=== PATIENT | female | born 1985 | race Caucasian/White ===

== ENCOUNTER 2020-08-17 05:20 | Day surgery (SDC) | payer MEDICAID ==
[2020-08-14 10:37] LABS: BASOPHILS 0.3 % (0-2); EOSINOPHILS 3.5 % (0-7); HEMATOCRIT 41.7 % (36.0-48.0); HEMOGLOBIN 13.6 g/dL (12-16); IMMATURE GRANULOCYTES 0.1 % (0-5); LYMPHOCYTES 27.3 % (15-50); MCH 28.7 pg (26.0-34.0); MCHC 32.6 g/dL (31.0-37.0); MEAN PLATELET VOLUME 10.6 fL (7.4-10.4); MONOCYTES 8.2 % (2-11); NEUTROPHILS 60.6 % (40-80); PLATELET COUNT 266 10x3/uL (130-400); RBC 4.74 10x6/uL (4.00-5.40); RDW 14.4 % (11.5-14.5); WBC 6.9 10x3/uL (4.8-10.8)
[~2020-08-17] VITALS: Ht 170.2 cm; Wt 95.3 kg
--- NOTE | ~2020-08-17 | OP ---
PATIENT NAME: ELADIA PEREA MEDICAL RECORD: [id number] :81 LOCATION:[facility] ADMISSION DATE: SURGEON: AKANKSHA RAIN DO DATE OF OPERATION: 08/17/2020 PREOPERATIVE DIAGNOSES: 1. Desires sterilization. 2. Menorrhagia. POSTOPERATIVE DIAGNOSES: 1. Desires sterilization. 2. Menorrhagia. PRIMARY SURGEON: Akanksha Rain DO ANESTHESIA: General endotracheal tube for intubation. PROCEDURE: Laparoscopic bilateral partial salpingectomy, hysteroscopy, D&C with NovaSure ablation. FINDINGS: Laparoscopy demonstrated uterus adhered to the anterior abdominal wall with dense adhesions, left greater than right. Liver, gallbladder and bilateral ovaries grossly normal. Ureters visualized with good peristalsis bilaterally. Hysteroscopy demonstrated bilateral ostia noted with small polyp fundus, it was resected mucoid discharge and moderate amount of polypoid tissue and D&C. NovaSure parameters were length 6 cm with 4.3 cm and RF time of 57 seconds. SPECIMENS: 1. Portions of right and left fallopian tubes. 2. Endometrial curetting. ESTIMATED BLOOD LOSS: 20 cc. IV FLUIDS: Per anesthesia. URINE OUTPUT: 20 cc red rubber and 100 cc of clear yellow urine at the Jennings at end of case. INFECTION PROPHYLAXIS: Betadine prep. COMPLICATIONS: None. Prior to procedure, the patient was counseled on risks and benefits of salpingectomy. The patient desires permanent sterilization as well as risks and benefits of ablation for menorrhagia. The patient expressed understanding and signed consent before procedure. DESCRIPTION OF PROCEDURE: The patient was then taken to the operating room where general anesthesia was administered. She was placed in the dorsal lithotomy position with Kameron stirrups and prepped and draped in normal usual fashion. A red rubber catheter used to drain urine and then a decision made to perform salpingectomy first. So, Jennings was placed. Attention then turned to the abdomen. Marcaine solution was utilized at the sites of trocar placement. Initially placed at the subumbilical area 5-mm subumbilical incision made OPERATIVE REPORT [id number] ELADIA PEREA through the skin and 5 mm trocar with laparoscope inside placed without difficulty. The peritoneal cavity was then insufflated with CO2 gas to maximum pressure of 20 mmHg. A laparoscope was reintroduced and entry was confirmed and no trauma noted in the cavity. The abdominal cavity was examined. Liver and gallbladder were grossly normal. Uterus noted to be adhered to the anterior abdominal wall with dense adhesions. Following this, 2 other ports were placed, 8-mm port on the right and a 5-mm port on the left side about 2 cm above and medial to the ASIS and respective side and they were placed under direct in full visualization after utilizing Marcaine on the skin. Taking care not to enter any vessels or injure any peritoneal contents. Due to adhesions, a distal part of fallopian tube was free, proximal part next to fundus was adhered to the abdominal wall, so 3-cm portion including fimbriae to adhesion on abdominal wall of fallopian tube was taken off initially starting on the right side, the fimbria grasped and Sorento introduced and staying close to fimbriae, staying close to tube. Coagulation was utilized and then ligation with the Thunderbeak to remove the fimbria and distal portion of the tube with good hemostasis. A portion of tube was then removed from 8 mm site and reexamined and noted to be hemostatic. Attention then turned to the opposite side where same steps were repeated and portion of tube was removed, again on the opposite side slightly smaller due to more dense adhesions on the left side as about 1.5-2 cm portion of tube removed including fimbriae. Prior to removing fimbriae, pelvic sidewalls were examined and ureters noted to have a good peristalsis bilaterally at cuff. Light irrigation used and no active bleeding noted and then after inspection of the abdomen the ports were removed under direct laparoscopic visualization. CO2 gas was then allowed to escape and the subumbilical port was removed with laparoscope in place for any possible bleeders. None were noted. Skin incisions were reapproximated with 3-0 Monocryl in subcuticular manner. Hemostasis was adequate. Attention then turned to the vagina. Bimanual exam revealed anteverted uterus with cervix retroverted due to adhesions I saw on laparoscopy, not very mobile. [place] speculum was placed in the vagina and anterior lip of the cervix was grasped with single-tooth tenaculum and brought forward. The sound was passed inside to measure length of uterus and cervix length was found to be 6 cm. Next, Hegar dilators were inserted to dilate cervical os to 8-mm. SureSound was utilized to measure length of uterus and cervix, and length of endometrial cavity was noted to be 6 cm. The diagnostic hysteroscopy was then introduced to the uterine cavity. Uterus distended with normal saline fluid. Cavity was found to be normal shape. A small polyp noted. Both ostia visualized. Scope was removed. Cervix was further dilated. A curette was introduced into the cavity. Thorough curettage was performed and sample sent to pathology. The NovaSure device was then opened and tested, fan deployed. The instrument was set to the cavity length and entry into the uterine cavity. The fan was fully deployed with gentle movements to ensure a snug fit within the cavity. The cavity width read 4.3 cm. The measurements were imported and a cavity check was done. Trumpet was then slid down to the cavity and device was activated. Total burn time of 57 seconds. The fan was then retracted and device removed. The fan was examined and revealed charred tissue. The tenaculum was removed and cervix examined for hemostasis was achieved. The speculum was removed. The patient tolerated the procedure well and brought to recovery room in stable condition. At the end of procedure, all lap, sponge, instrument counts were correct times 2. The patient tolerated the procedure well. TRANSINT:[id number] Voice Confirmation ID: [id number] DOCUMENT ID: [id number] OPERATIVE REPORT [id number] ELADIA PEREA SUCHITA DO CC: [id number] DICTATION DATE: 08/21/20824 PRODUCT SUPPORT REP: 08/21/20 1529 [facility] 08/17/20 [facility] [address] [place] [address]
[~2020-08-17 05:20] MED LIST: LEXAPRO20 MG PO
[2020-08-17 06:41] VITALS: BP 115/76; BMI 32.9
[2020-08-17 06:59] LABS: HCG URINE NEGATIVE (NEGATIVE)
[2020-08-17 08:40] VITALS: Ht 170.2 cm; Wt 95.3 kg
--- NOTE | 2020-08-17 11:43 | NUR ---
NO BLEEDING NOTED. PATIENT SLEEPING. STILL DROWSY.
--- NOTE | 2020-08-17 17:15 | NUR ---
1530 BLADDER [id number]. ON 2ND BAG OF FLUID 1550 R'D WITH PRCOCET 1654 VOIDED WITHOUT DIFFICULTY. IV D/C'D WITH CANNULA INTACT, PRESSURE HELD AND DRESSING PLACED. DISCHARGE INSTRUCTIONS GIVEN AND PT VEBALIZE AN UNDERSTANDING. DISCHARGED IN STABLE CONDIITON AND WITHOUT COMPLAINTS
== END 2020-08-17 17:00 | disposition home or self-care (01) ==
LOC: D.PAN 05:20 → D.OPS 07:30 → D.PAN 07:30
PROVIDERS: ATTEND Obstetrics & Gynecology
DX: N92.0 Excessive and frequent menstruation with regular cycle (principal); Z30.2 Encounter for sterilization; Z97.5 Presence of (intrauterine) contraceptive device